=== PATIENT | male | born 1985 | race African-American/Black ===

== ENCOUNTER 2017-07-12 06:16 | Emergency (ER) | payer OTHER ==
[2017-07-12 06:37] LABS: ADD MAN DIFF? NO
[2017-07-12] MEDS: IPRATRPIUM/ALBUTEROL 0.5/2.5MG 3 ML NEBU. NEB (06:41)
[2017-07-12 06:48] LABS: BASO # 0.1 x10^3/uL (0.0-0.2); BASO % 1 % (0-3); EOS # 0.7 x10^3/uL (0.0-0.7); EOS % 11 % (0-3); HEMATOCRIT 41.2 % (39.0-53.0); HEMOGLOBIN 13.8 g/dL (13.0-17.5); LYMPH # 2.9 x10^3/uL (1.0-4.8); LYMPH % 46 % (24-48); MEAN CORPUSCULAR HEMOGLOBIN 30 pg (25-35); MEAN CORPUSCULAR HGB CONC 33 g/dL (31-37); MEAN CORPUSCULAR VOLUME 88 fL (79-100); MONO # 0.5 x10^3/uL (0.0-1.1); MONO % 8 % (0-9); NEUT # 2.1 x10^3uL (1.8-7.7); NEUT % 34 % (31-73); PLATELET COUNT 206 x10^3/uL (140-400); RED BLOOD COUNT 4.67 x10^6/uL (4.30-5.70); WHITE BLOOD COUNT 6.3 x10^3/uL (4.0-11.0)
[2017-07-12] MEDS: predniSONE 10 MG TABLET PO (06:54)
[2017-07-12 06:56] LABS: ANION GAP 8 (6-14); BLOOD UREA NITROGEN 13 mg/dL (8-26); CALCIUM 8.8 mg/dL (8.5-10.1); CARBON DIOXIDE 26 mmol/L (21-32); CHLORIDE 107 mmol/L (98-107); GFR 104.8; GLUCOSE 103 mg/dL (70-99); POTASSIUM 3.2 mmol/L (3.5-5.1); SODIUM 141 mmol/L (136-145)
[2017-07-12 07:07] LABS: TROPONINI < 0.017 ng/mL (0.000-0.055)
[2017-07-12 07:09] LABS: NT-PRO BNP 33 pg/mL (0-124)
[2017-07-12] MEDS: ALBUTEROL SULFATE 2.5 MG/3 ML NEBU. NEB (07:47)
== END 2017-07-12 07:55 | disposition home or self-care (01) ==
LOC: ER 06:16
DX: J45.909 Unspecified asthma, uncomplicated (principal)
CPT/HCPCS: 36415; 71046; 80048; 83880; 84484; 85025; 93005; 94640; 99285; J7512; J7613; J7620